=== PATIENT | male | born 1990 | race Caucasian/White ===

== ENCOUNTER 2016-06-07 02:59 | Emergency (ER) | payer MEDICAID ==
[2016-06-07 03:39] VITALS: BP 161/95
== END 2016-06-07 03:39 | disposition home or self-care (01) ==
LOC: ED 02:59
DX: L03.011 Cellulitis of right finger (principal)

== ENCOUNTER 2017-04-21 14:43 | Emergency (ER) | payer MEDICAID ==
[~2017-04-21] VITALS: Ht 170.2 cm; Wt 66.5 kg
[2017-04-21 14:56] VITALS: BP 130/92; Ht 170.2 cm; Wt 66.5 kg
== END 2017-04-21 16:13 | disposition home or self-care (01) ==
LOC: ED 14:43
DX: S61.313A Laceration without foreign body of left middle finger with damage to nail, initial encounter (principal); W26.8XXA Contact with other sharp object(s), not elsewhere classified, initial encounter; Y93.89 Activity, other specified; Y92.89 Other specified places as the place of occurrence of the external cause; Y99.8 Other external cause status
CPT/HCPCS: A4570; J2001

== ENCOUNTER 2017-11-16 09:25 | Emergency (ER) | payer MEDICAID ==
[~2017-11-16] VITALS: Ht 170.2 cm; Wt 68.5 kg
[2017-11-16 09:29] VITALS: Ht 170.2 cm; Wt 68.5 kg
[2017-11-16 10:09] LABS: BASOPHIL % 0.7 % (0-2); PLATELET COUNT 274 x10^3mcL (130-400); RED CELL DISTRIBUTION WIDTH 12.8 % (11.5-14.5)
[2017-11-16 10:23] LABS: CALCIUM 8.8 mg/dL (8.5-10.1); CARBON DIOXIDE 25.8 mmol/L (21-32); CHLORIDE SERUM 106 mmol/L (98-107); CREATININE SERUM 0.8 mg/dL (0.7-1.3); GFR1 > 60 mL/min; GLUCOSE SERUM 95 mg/dL (74-106); POTASSIUM SERUM 3.8 mmol/L (3.5-5.1); SODIUM SERUM 137 mmol/L (136-145)
[2017-11-16 10:36] LABS: ALKALINE PHOSPHATASE 63 U/L (46-116); ALT/SGPT 18 U/L (16-63); AST/SGOT 27 U/L (15-37); BILIRUBIN TOTAL 0.42 mg/dL (0.20-1.00); TOTAL PROTEIN, SERUM 7.5 g/dL (6.4-8.2)
[2017-11-16 11:21] LABS: AMPHETAMINE QUAL UR NONE DETECTED (See below)
[2017-11-16 11:59] VITALS: BP 129/86
== END 2017-11-16 11:59 | disposition home or self-care (01) ==
LOC: ED 09:25
PROVIDERS: Emergency Medicine
DX: R53.1 Weakness (principal); R19.7 Diarrhea, unspecified; D72.819 Decreased white blood cell count, unspecified
CPT/HCPCS: 36415; 87046; 87046-59

== ENCOUNTER 2017-12-23 17:50 | Emergency (ER) | payer MEDICAID ==
[2017-12-23 17:57] VITALS: Ht 170.2 cm
[2017-12-23 19:50] VITALS: BP 143/89
== END 2017-12-23 19:51 | disposition home or self-care (01) ==
LOC: ED 17:50
DX: M12.812 Other specific arthropathies, not elsewhere classified, left shoulder (principal); F41.9 Anxiety disorder, unspecified; R03.0 Elevated blood-pressure reading, without diagnosis of hypertension; R56.9 Unspecified convulsions
CPT/HCPCS: J1885; Q0092